=== PATIENT | male | born 1990 | race Caucasian/White ===

== ENCOUNTER 2018-04-13 20:19 | Emergency (ER) | payer OTHER ==
[~2018-04-13] VITALS: Ht 177.8 cm; Wt 131.5 kg
[2018-04-13] MEDS ORDERED: PRINIVIL10 MG PO (20:49)
[2018-04-13] MEDS ORDERED: PRAVASTATIN SOD10 MG PO (20:49)
[2018-04-13] MEDS ORDERED: OMEPRAZOLE20 M1 PO (20:50)
== END 2018-04-13 21:27 | disposition home or self-care (01) ==
LOC: ED 20:19
DX: S61.411A Laceration without foreign body of right hand, initial encounter (principal); W45.8XXA Other foreign body or object entering through skin, initial encounter; I10 Essential (primary) hypertension; E78.5 Hyperlipidemia, unspecified; K21.9 Gastro-esophageal reflux disease without esophagitis; Z79.899 Other long term (current) drug therapy
CPT/HCPCS: 12001; 90471; 90715; 99282-25